=== PATIENT | female | born 1970 | race Caucasian/White ===

== ENCOUNTER 2019-04-24 07:51 | Outpatient (CLI) | payer MEDICARE, MEDICAID ==
[~2019-04-24] VITALS: Ht 165.1 cm; Wt 71.2 kg
[2019-04-24] VITALS (10 sets, daily range): BP systolic 107–150; BP diastolic 49–92; PULSE 85–106; TEMP 97.8–98.1
[~2019-04-24 07:51] MED LIST: D3-5050000 IU PO; DETROL LA4 PO; ESTRACE 1MG1 MG/TAB PO; HCTZ12.5TAB PO; MASON NATURAL600 MG PO; OCREVUS300 MG/10 IV; REMERON30 MG PO; RISPERDAL 0.5M0.5 MG PO; TRIMPEX100 MG PO; WELLBUTRIN SR150 M1 PO; ZESTRIL 10MG10 MG PO
[2019-04-24] MEDS ORDERED: PRINZIDE 12.5 M1 TAB PO (09:19)
[2019-04-24] MEDS ORDERED: REXULTI3 MG PO (09:23)
[2019-04-24] MEDS ORDERED: NEURONTIN100 MG/CAP PO (09:35)
[2019-04-24] MEDS ORDERED: MASON NATURAL600 MG PO (09:36)
[2019-04-24] MEDS ORDERED: MOBIC 7.5MG7.5 MG PO (09:36)
--- NOTE | 2019-04-24 13:42 | NUR ---
Pt stayed for one hour post infusion.No complaints.Pt assisted x 2 to electric wheelchair.pt discharged at this time.
== END 2019-04-24 13:43 | disposition home or self-care (01) ==
LOC: EUO 07:51
DX: G35 Multiple sclerosis (principal)
CPT/HCPCS: J2930; J7040

== ENCOUNTER 2019-11-11 08:23 | Outpatient (CLI) | payer MEDICARE, MEDICAID ==
[2019-11-11] VITALS (10 sets, daily range): BP systolic 116–132; BP diastolic 68–82; PULSE 62–90; TEMP 97.8
[~2019-11-11 08:23] MED LIST changes: +MOBIC 7.5MG7.5 MG PO; +NEURONTIN100 MG/CAP PO; +PRINZIDE 12.5 M1 TAB PO; +REXULTI3 MG PO
== END 2019-11-11 13:15 | disposition home or self-care (01) ==
LOC: EUO 08:23
DX: G35 Multiple sclerosis (principal); Z79.899 Other long term (current) drug therapy
CPT/HCPCS: J2930; J7040

== ENCOUNTER 2020-06-24 09:46 | Outpatient (CLI) | payer MEDICARE, MEDICAID ==
[2020-06-24] VITALS (11 sets, daily range): BP systolic 107–133; BP diastolic 54–84; PULSE 63–93; TEMP 97.5
== END 2020-06-24 15:45 | disposition home or self-care (01) ==
LOC: EUO 09:46
DX: G35 Multiple sclerosis (principal)
CPT/HCPCS: J2930; J7040

== ENCOUNTER 2021-01-04 09:56 | Outpatient (CLI) | payer MEDICARE, MEDICAID ==
[~2021-01-04] VITALS: Ht 165.1 cm; Wt 99.2 kg
[2021-01-04] VITALS (8 sets, daily range): BP systolic 98–125; BP diastolic 59–78; PULSE 75–88; TEMP 98
[2021-01-04] MEDS ORDERED: VITAMIND3 5000 PO (11:45)
[2021-01-04] MEDS ORDERED: EPA FISH OIL1 SGL PO (11:45)
[2021-01-04] MEDS ORDERED: ZESTRIL 10MG10 MG PO (11:46)
[2021-01-04] MEDS ORDERED: MIRALAX PA17 GM/Dose PO (11:47)
[2021-01-04] MEDS ORDERED: LYRICA 50MG CAP50 MG PO (11:58)
[2021-01-04] MEDS ORDERED: HCTZ12.5TAB PO (11:58)
[2021-01-04] MEDS ORDERED: MASON NATURAL600 MG PO (11:59)
[2021-01-04] MEDS ORDERED: REXULTI3 MG PO (11:59)
[2021-01-04] MEDS ORDERED: TRIMPEX100 MG PO (11:59)
[2021-01-04] MEDS ORDERED: TRIAMCINOLONE A15 G3 TP (12:08)
[2021-01-04] MEDS ORDERED: CALMOSEPTINE OI71 GM TP (12:08)
--- NOTE | 2021-01-04 15:10 | NUR ---
Pt assisted back into electric wheelchair by juanjose lift. She leaves in care of [facility] staff member who assisted with her transport to [place], and has remained in her room during infusion. Personal belongings sent with pt. Pt tolerated increased rate of infusion with no issues.
== END 2021-01-04 15:23 ==
LOC: EUO 09:56
DX: G35 Multiple sclerosis (principal); Z79.899 Other long term (current) drug therapy
CPT/HCPCS: J2930; J7040

== ENCOUNTER 2021-08-19 13:10 | Outpatient (CLI) | payer MEDICARE, MEDICAID ==
[~2021-08-19] VITALS: Ht 165.1 cm; Wt 103.0 kg
[2021-08-19] VITALS (8 sets, daily range): BP systolic 115–148; BP diastolic 64–98; PULSE 85–94; TEMP 98
[~2021-08-19 13:10] MED LIST changes: +CALMOSEPTINE OI71 GM TP; +EPA FISH OIL1 SGL PO; +LYRICA 50MG CAP50 MG PO; +MIRALAX PA17 GM/Dose PO; +TRIAMCINOLONE A15 G3 TP; +VITAMIND3 5000 PO
[2021-08-19] MEDS ORDERED: MELATONIN5 M1 PO (16:30)
[2021-08-19] MEDS ORDERED: NYSTATIN POWDER15 GM TOP (16:31)
[2021-08-19] MEDS ORDERED: CLARITIN 1010 MG/TAB PO (16:32)
[2021-08-19] MEDS ORDERED: TYLENOL 325MG325 MG PO (16:33)
[2021-08-19] MEDS ORDERED: MILK OF MA400 MG/52 PO (16:33)
[2021-08-19] MEDS ORDERED: MOTRIN 200200 MG/TAB PO (16:34)
--- NOTE | 2021-08-19 17:45 | NUR ---
Pt tolerated infusion of Ocrevus today with no problems. Pt repeatedly refused offers of food/drink. Pt did void large amount on bedpan during her stay. blanchable erythema noted to ischial tuberosities, rt area>left with some stage 2 areas of skin breakdown present within the area of erythema. Pt was transferred back to electric wheelchair with juanjose. IV dc'd with cath intact, dressing applied. Pt and staff from alf ([facility] escorted to exit.
== END 2021-08-19 18:37 | disposition home or self-care (01) ==
LOC: EUO 13:10
DX: G35 Multiple sclerosis (principal)
CPT/HCPCS: J2930; J7040

== ENCOUNTER 2022-02-25 09:32 | Outpatient (CLI) | payer MEDICARE, MEDICAID ==
[~2022-02-25 09:32] MED LIST changes: +CLARITIN 1010 MG/TAB PO; +MELATONIN5 M1 PO; +MILK OF MA400 MG/52 PO; +MOTRIN 200200 MG/TAB PO; +NYSTATIN POWDER15 GM TOP; +TYLENOL 325MG325 MG PO
[2022-02-25 10:30] VITALS: BP 151/92; PULSE 89; TEMP 97.8
[2022-02-25 11:00] VITALS: BP 129/82; PULSE 90
[2022-02-25 11:30] VITALS: BP 137/86; PULSE 95
[2022-02-25 12:00] VITALS: BP 158/96; PULSE 90
[2022-02-25 12:30] VITALS: BP 124/99; PULSE 92; TEMP 98.7
--- NOTE | 2022-02-25 13:12 | NUR ---
pt sits up in bed meal ordered juliana after talking with Dr santiago, has no c/o
--- NOTE | 2022-02-25 13:42 | NUR ---
iv d'cd intact, pt ate lunch, up in chair via lift, call light in reach, watches tv, waits for ride, report paper filled out for staff and will send
--- NOTE | 2022-02-25 14:10 | NUR ---
pt was discharged with belongings and paper work with [facility] staff
== END 2022-02-25 14:10 ==
LOC: EUO 09:32
DX: G35 Multiple sclerosis (principal)
CPT/HCPCS: J2350; J2930; J7040